=== PATIENT | male | born 1940 | race Caucasian/White ===

== ENCOUNTER → 2017-12-29 | Outpatient (CLI) | payer MEDICARE, BC ==
[~2017-12-29] MED LIST: ADULT LOW DOSE81 M1 PO; ADVAIR 500/501 DISK; ALEVE220 MG PO; ATROVENT 00.5 MG/2.5 IH; CRESTOR40 MG PO; DULERA 200 MCG/13 GM IH; ERGOCALCIF50000 UNIT PO; FINASTERIDE5 MG PO; FLAX SEED OIL1 EACH PO; HYDROCHLOROTH12.5 M1 PO; LAXATIVE5 M1 PO; LO-DOSE ASPIRIN81 M1 PO; METOPROLOL SUCC50 MG PO; MICROZIDE12.5 M1 PO; NIFEDIPINE ER90 MG PO; NOHOMEMEDS; PREDNISONE10 MG PO; PRINIVIL5 MG PO; PROCARDIA XL90 MG PO; PROSCAR5 MG PO; SPIRIVA1 INHALATI; TOPROL XL50 MG PO; VITAMIN D250000 UNIT PO
== END | disposition home or self-care (01) ==
LOC: CDC 12:21
DX: Z01.810 Encounter for preprocedural cardiovascular examination (principal); I70.25 Atherosclerosis of native arteries of other extremities with ulceration; I49.1 Atrial premature depolarization; R94.31 Abnormal electrocardiogram [ECG] [EKG]
CPT/HCPCS: 93000